=== PATIENT | male | born 1980 | race Two or more races ===

== ENCOUNTER → 2020-05-20 | Emergency (ER) | payer MEDICAID ==
[~2020-05-20] VITALS: Ht 185.4 cm; Wt 125.0 kg
[~2020-05-20] MED LIST: FLUORESCEIN SODIUM 1 MG STRIP OD ONE; PROPARACAINE HCL 0.5% 15 ML OPHTHALMIC SOLUTION OU ONE
[2020-05-20 05:00] VITALS: BP 141/86
== END | disposition home or self-care (01) ==
LOC: EMS 04:36
DX: H10.213 Acute toxic conjunctivitis, bilateral (principal); F17.210 Nicotine dependence, cigarettes, uncomplicated
CPT/HCPCS: 99283